=== PATIENT | male | born 1945 | race Caucasian/White ===

== ENCOUNTER → 2019-04-03 | Outpatient (CLI) | payer OTHER ==
[2019-04-03 07:33] LABS: HEMATOCRIT 42.5 % (42.0-52.0); HEMOGLOBIN 14.2 gm/dL (14.0-18.0); MCH 33.3 pg (26.0-34.0); MCHC 33.5 g/dL (28.0-37.0); MCV 99.2 fL (80.0-100.0); RBC 4.28 mil/uL (4.50-6.00); WBC 5.9 thou/uL (4.0-11.0)
[2019-04-03 07:48] LABS: ALBUMIN 3.8 g/dL (3.4-5.0); CALCIUM 9.1 mg/dL (8.5-10.1); CREATININE 0.9 mg/dL (0.7-1.3); POTASSIUM 3.8 mmol/L (3.5-5.1); TOTAL BILIRUBIN 1.5 mg/dL (<0.1-1.0); TOTAL PROTEIN 7.3 g/dL (6.4-8.2)
[2019-04-03 07:50] LABS: INR 1.1; PROTIME 11.1 Seconds (9.3-11.4)
== END ==
LOC: CAT 06:50 → EDSTATUS 12:08 → CAT 12:09
PROVIDERS: Internal Medicine Cardiovascular Disease
DX: I25.10 Atherosclerotic heart disease of native coronary artery without angina pectoris (principal); J98.11 Atelectasis; I48.91 Unspecified atrial fibrillation; K76.9 Liver disease, unspecified; M47.814 Spondylosis without myelopathy or radiculopathy, thoracic region; Z90.49 Acquired absence of other specified parts of digestive tract

== ENCOUNTER 2019-04-09 06:30 | Observation (INO) | payer OTHER ==
[~2019-04-09] VITALS: Ht 180.3 cm; Wt 103.9 kg
[2019-04-09 07:08] VITALS: BP 157/83
[2019-04-09 07:12] LABS: ABSOLUTE NEUTROPHILS 4.1 thou/uL (1.4-8.2); BASOPHILS 0.7 % (0.0-2.0); HEMATOCRIT 43.2 % (42.0-52.0); HEMOGLOBIN 14.6 gm/dL (14.0-18.0); MCH 33.2 pg (26.0-34.0); MCHC 33.7 g/dL (28.0-37.0); MCV 98.6 fL (80.0-100.0); MONOCYTES 8.9 % (1.0-8.0); PLATELET COUNT 241 thou/uL (150-400); POLYS 56.4 % (36.0-66.0); RBC 4.38 mil/uL (4.50-6.00); RDW 12.9 % (10.5-14.5); WBC 7.2 thou/uL (4.0-11.0)
[2019-04-09] MEDS ORDERED: NORVASC 2.5 MG2.5 M1 PO (07:20)
[2019-04-09] MEDS ORDERED: ELIQUIS5 MG PO (07:21)
[2019-04-09] MEDS ORDERED: FLECAINIDE ACET50 M2 PO (07:22)
[2019-04-09] MEDS ORDERED: ADVAIR 250-501 EACH INH (07:23)
[2019-04-09] MEDS ORDERED: TOPROL XL50 MG PO (07:23)
[2019-04-09] MEDS ORDERED: PRILOSEC OTC20 MG PO (07:24)
[2019-04-09 07:36] LABS: APTT 26.8 Seconds (24.5-32.8); PROTIME 10.8 Seconds (9.3-11.4)
[2019-04-09 07:39] LABS: CALCIUM 9.4 mg/dL (8.5-10.1); CREATININE 0.9 mg/dL (0.7-1.3); POTASSIUM 3.8 mmol/L (3.5-5.1)
--- NOTE | 2019-04-09 13:01 | NUR ---
ASSUMED CARE OF PT FROM Kiran.
[2019-04-09 13:58] VITALS: BP 135/81
--- NOTE | 2019-04-09 16:20 | NUR ---
PT ARRIVED TO UNIT AT APPROX 1345 BY BACTERIOLOGY PROFESSOR STAFF ACCOMPANIED BY SPOUSE. PT ALERT AND ORIENTED. VSS. C/O "MILD DISCOMFORT" IN CHEST AREA, CARDIOLOGY NOTIFIED, NO NEW ORDERS RECEIVED. PT ON BED REST POST ABLATION, COMPLYING APPROPRIATELY. RIGHT GROIN SITE DRY AND INTACT WITH MINIMAL DRAINAGE NOTED, NO HEMATOMA/BLEEDING. GROIN SITE REMAINS DRY AND INTACT, FREE OF HEMATOMA. POST EP LAB VITALS INITIATED UPON ARRIVAL. O2 SATS WNL ON ROOM AIR, NO C/O SOB. UPON RHYTHM STRIP ASSESSMENTS, RHYTHM LOOKED SIMILAR TO A FLUTTER, CARDIOLOGY NOTIFIED, ORDERS RECEIVED TO GIVE FLECCAINIDE EARLY. WILL CONT TO MONITOR AND FOLLOW POC.
[2019-04-09 21:28] VITALS: BP 120/75
[2019-04-10 00:31] VITALS: BP 115/67
[2019-04-10 05:34] VITALS: BP 111/64
--- NOTE | 2019-04-10 05:41 | NUR ---
ASSESSMENTS CHARTED. MEDS GIVEN CHARTED. PATIENT WAS OFF BEDREST BEFORE SHIFT STARTED. UP AT MAUREEN IN ROOM, IN SINUS RHYTHM DURING SHIFT. BECOMES TACHY WHEN UP. ON ROOM AIR. SANCHEZ WAS REMOVED SHORTLY AFTER THE START OF SHIFT. C/O CONSTIPATION. GIVEN PRUNE JUICE AND RECEIVED ORDER FOR DOCUSAT. RIGHT GROIN SITE IS SOFT AND DRY BLOOD IS OUTLINED WITHOUT SEEPING. DENIED PAIN. PLAN OF CARE IS TO GO HOME TODAY.
[2019-04-10 08:09] VITALS: BP 142/86
[2019-04-10] MEDS ORDERED: TAMBOCOR 100 M100 M1 PO (08:13)
--- NOTE | 2019-04-10 08:43 | EKG ---
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 BRADY : 1945 Requested By: Angelica Gautam Order Number: [id number] MD: Herberth Rain Measurements Intervals [place] Rate: 74 P: 33 IL: 169 QRS: -16 QRSD: 97 T: -14 QT: 275 QTc: 305 Interpretive Statements Sinus rhythm Borderline left axis deviation Repol abnrm suggests ischemia, diffuse leads No previous ECG available for comparison Electronically Signed On 04-10-2019 8:42:40 TRANSPORTATION SOLUTIONS MANAGER by Herberth Rain [email or web address] <ELECTRONICALLY SIGNED> By: Herberth Rain MD 04/10/19 0842 1609 08 Herberth Rain MD /BETH
[2019-04-10 09:28] VITALS: BP 142/86
--- NOTE | 2019-04-10 10:41 | NUR ---
ASSUMMED PT CARE AT APPROXIMATELY 0700. PT A&O X4. ASSESSMENT CHARTED. FALL PRECAUTIONS IN PLACE. PT DENIES HAVING CHEST PAIN. PT DENIES HAVING SOB. PT DENIES HAVING ACUTE PAIN. VITAL SIGNS STABLE. PT DISCHARGING HOME C SELF CARE. PT AND PT'S FAMILY RECEIVED DISCHARGE EDUCATION. PT AND PT'S FAMILY STATED UNDERSTANDING AND DENIED HAVING FURTHER QUESTIONS. IV DC. TELE DC. PT R GROIN C/D/I, NO HEMATOMA. PT RECEIVING HOSPITAL TRANSPORT TO BE TRANSPORTED OFF UNIT. PT COMFORTABLE- PT DENIES HAVING FURTHER CONCERNS. SPOUSE DRIVING PT HOME.
--- NOTE | 2019-04-13 11:23 | D ---
[facility] [place] [address] DISCHARGE SUMMARY Name: WAGNER MCKEON Room #: 204-P [facility] Mallory Martinez#: [id number] Admission: 04/09/19 Attend Phys: Herberth Rain MD Discharge: 04/10/19 Date of : 47 Report #: [id number] THIS REPORT FOR: //name// CC: Herberth Huffman DISCHARGE DIAGNOSES: Atrial fibrillation. PROCEDURES PERFORMED: AFib ablation. HISTORY: The patient is a 74-year-old male with history of recurrent AFib despite antiarrhythmic drug therapy, here for ablation. The patient underwent successful AFib ablation without any procedure-related complications. HOSPITAL COURSE: The patient was monitored in the CCU overnight and did well. On the day of discharge, he denied any fevers, chills, chest pain or shortness of breath. PHYSICAL EXAMINATION: GENERAL: No acute distress. HEART: Regular rate and rhythm with no murmurs, rubs or gallops. LUNGS: Clear to auscultation bilaterally. ABDOMEN: Soft, nontender, nondistended. EXTREMITIES: No clubbing, cyanosis or edema. His right groin showed no evidence of bruising or hematoma. On telemetry, he remained in sinus rhythm overnight. As such, he was deemed stable for discharge home. Discharge instructions were reviewed. He will follow up with my nurse practitioner in 1 week and see me in 3 months. He will continue with Eliquis at discharge and I will increase his flecainide to 100 b.i.d. If he is intolerant of this higher dose of flecainide, he can always back down to 50 mg twice a day. <ELECTRONICALLY SIGNED> By: Herberth Rain MD 04/13/19 1123 [id number] [id number] Herberth Rain MD /nt
--- NOTE | 2019-04-13 11:23 | P ---
[facility] [place] [address] PROCEDURE REPORT Name: WAGNER MCKEON Room #: 204-P [facility] Mallory aMrtinez#: [id number] Admission: 04/09/19 Attend Phys: Herberth Rain MD Discharge: 04/10/19 Date of : 47 Report #: [id number] THIS REPORT FOR: //name// CC: Herberth Huffman DATE OF SERVICE: 04/09/2019 PREOPERATIVE DIAGNOSIS: Atrial fibrillation. POSTOPERATIVE DIAGNOSIS: Atrial fibrillation. PROCEDURES PERFORMED: 1. Atrial fibrillation ablation, CPT code 31846. 2. 3D mapping, CPT code 74934. 3. Intracardiac echo, CPT code 72488. ANESTHESIA: The patient underwent general anesthesia with no anesthesia related complications. DESCRIPTION OF PROCEDURE: The patient underwent informed consent. We discussed the details of the procedure including the risks, which include but not limited to bleeding, vascular damage, cardiac perforation as well as stroke or LA. He understood these risks and is willing to proceed. The patient was brought to the EP laboratory in fasting and sedated state, prepped and draped in a sterile fashion. Next, I injected lidocaine at the right groin region and obtained access to the right femoral vein x 3, placing an 8, 9 and 7-Czech short sheath using the modified Seldinger technique. Next, under fluoroscopy, I placed a decapolar catheter easily in the coronary sinus and ice catheter into the right atrium. Of note, the patient had a very thick interatrial septum, but there was a thin area for transseptal at a very anterior location. I had difficulties visualizing the left-sided veins. However, on cardiac CT scan, the patient had evidence of 2 left and 2 right pulmonary veins. The left inferior pulmonary vein was noted to be quite small at 8 mm in diameter. The patient was systemically heparinized and a transseptal was performed using an SL1 sheath and a [place] needle and this was straightforward. I advanced the SL1 into the left atrium and then I was able to place my guidewire into the left superior pulmonary vein. I then exchanged for the cryo sheath and placed a [employer] [place] Lasso catheter in the left atrium and created a detailed 3D voltage map of the left atrium. Of note, I had difficulties determining where the left inferior pulmonary vein was. I therefore removed the Lasso and placed the cryoballoon into the left atrium. I was able to get my cryoballoon into the left superior pulmonary vein and I started by isolating this vessel. The vein [facility] [address] [place] [address] PROCEDURE REPORT Name: WAGNER MCKEON Room #: 204-P [facility] Mallory Martinez#: [id number] Admission: 04/09/19 Attend Phys: Herberth Rain MD Discharge: 04/10/19 Date of : 47 Report #: [id number] isolated within 30 seconds of the first freeze and I came off after 85 seconds as the attempts got cold. I then performed a second freeze of 100 seconds duration and it came off again as the vein got cold again. I then performed a less selective freeze of this vessel that was of 4 minutes' duration. This vein remained isolated. Next, I attempted to find the left inferior pulmonary vein and had difficulties; therefore, I decided to go for the right-sided veins. I performed phrenic nerve pacing using the decapolar catheter placed up in the subclavian vessel. I performed 3 initial freezes. The first freeze was of 180 seconds duration. Second freeze 240 and third freeze of 195 seconds. None of these freezes resulted in isolation. The vein did have a very horizontal takeoff and despite good temperatures, it clearly had not isolated. I therefore went to the right inferior pulmonary vein and I performed a single 3-minute freeze as this vein isolated within 28 seconds. I then went back to the right superior pulmonary vein and this was still connected. I performed a 120-second freeze and came off as it was not isolating, I therefore performed another freeze. This freeze I clocked the catheter in a more superior position. After 71 seconds, the vein finally isolated. The final freeze was of 5 minutes duration. I then went and looked for the left inferior pulmonary vein. Again, this was difficult to localize. It was quite small and I would either get into the appendage or I would across the mitral valve. Finally, I found the vein and injected and it was clearly the left inferior pulmonary vein. I performed a 4-minute freeze, which resulted in isolation within 30 seconds. I performed an additional bonus freeze of 3 minutes' duration. Next, I removed the cryoballoon from the cryo sheath and placed the Lasso catheter in the left atrium and created a detailed 3D voltage map of the left atrium and there was wide circumferential ablation of the pulmonary veins. Post-ablation, the patient remained in sinus rhythm. There were no procedure related complications and no evidence of effusion as such. The patient received systemic protamine and once ACT was within acceptable range, catheters and sheaths were pulled and hemostasis was obtained. The patient awoke neurologically and hemodynamically intact. No complications and no significant bleeding. CONCLUSIONS: Successful AFib ablation with isolation of the pulmonary veins. <ELECTRONICALLY SIGNED> By: Herberth Rain MD 04/13/19 1123 1338 46 Herberth Rain MD /nt
== END 2019-04-10 11:01 | disposition home or self-care (01) ==
LOC: CATH → 2N 13:57 → CATH 15:33 → ENTRNSPT 04-10 10:34 → EDTRNSPTSTS 04-10 10:36 → 2N 04-10 11:01
PROVIDERS: ADMIT Internal Medicine Cardiovascular Disease
DX: I48.91 Unspecified atrial fibrillation (principal); E78.5 Hyperlipidemia, unspecified; I10 Essential (primary) hypertension; G47.33 Obstructive sleep apnea (adult) (pediatric); Z87.891 Personal history of nicotine dependence; Z79.899 Other long term (current) drug therapy
CPT/HCPCS: 62110; 62900; 65020; 65040; 65130; 70005

== ENCOUNTER → 2019-08-28 | Outpatient (CLI) | payer OTHER ==
[~2019-08-28] MED LIST: ADVAIR 250-501 EACH INH; ELIQUIS5 MG PO; FLECAINIDE ACET50 M2 PO; NORVASC 2.5 MG2.5 M1 PO; PRILOSEC OTC20 MG PO; TAMBOCOR 100 M100 M1 PO; TOPROL XL50 MG PO
== END ==
LOC: SJCVC 12:48
DX: I48.0 Paroxysmal atrial fibrillation (principal); I10 Essential (primary) hypertension; E78.5 Hyperlipidemia, unspecified; Z87.891 Personal history of nicotine dependence; Z79.899 Other long term (current) drug therapy

== ENCOUNTER → 2019-11-06 | Outpatient (CLI) | payer OTHER ==
--- NOTE | ~2019-11-06 | P ---
[facility] [place] [address] PROCEDURE REPORT Name: WAGNER MCKEON Room #: REG SATHISH Jack.#: [id number] Admission: 11/06/19 Attend Phys: Herberth Rain MD Discharge: Date of : 47 Report #: [id number] THIS REPORT FOR: cc: Jah Huffman MD, W. Russell MD Couchonnal, Luis F. MD ~ CC: Herberth Huffman DATE OF SERVICE: 11/07/2019 PROCEDURE: Implantable loop recorder. PREOPERATIVE DIAGNOSIS: Palpitations. DESCRIPTION OF PROCEDURE: The patient underwent informed consent. He was prepped in a standard fashion. I injected lidocaine at the incision site. The device was injected under the skin. A single layer of suture was performed and surgical glue was placed at the outer skin layer. The patient had no procedure related complications. Implanted device was a [employer] LINQ, model number LNQ11, serial #[id number]. CONCLUSIONS: Successful implantation of implantable loop recorder. By: 1120 1403 Herberth Rain MD /nt
[2019-11-06 12:58] VITALS: BP 154/103
== END | disposition home or self-care (01) ==
LOC: CATH 10-16 07:29
PROVIDERS: ATTEND Internal Medicine Cardiovascular Disease
DX: R00.2 Palpitations (principal); I48.91 Unspecified atrial fibrillation

== ENCOUNTER → 2020-03-05 | Outpatient (CLI) | payer OTHER | LOC: SJCVC 13:41 | PROVIDERS: ATTEND Internal Medicine Cardiovascular Disease | DX: I48.0 Paroxysmal atrial fibrillation (principal); R94.31 Abnormal electrocardiogram [ECG] [EKG]; R00.1 Bradycardia, unspecified; I10 Essential (primary) hypertension; G47.33 Obstructive sleep apnea (adult) (pediatric); Z79.899 Other long term (current) drug therapy; Z87.891 Personal history of nicotine dependence ==